=== PATIENT | female | born 1930 | race Caucasian/White ===

== ENCOUNTER → 2016-09-15 | Outpatient (CLI) | payer OTHER, BC ==
[2016-04-09 13:59] VITALS: BP 127/65; PULSE 58
[~2016-09-15] MED LIST: AMLO-114 PO; ASPI325T39 PO; CALC-26 PO; CILO100T PO; ESCI1TAB6 PO; HYDR-3419 PO; LPT/40 PO; METO-217 PO; MULTTAB58 PO; NTRGSL/4 UT; OMEG10007 PO; POTA10CA28 PO; TRIATAB3 PO; ZNTT/150 PO
[2016-09-15 14:04] VITALS: BP_SYST 122; BP_SYST 161; BP_DIAS 69; BP_DIAS 71; PULSE 60; TEMP 36.5; O2SAT 94
--- NOTE | 2016-09-15 16:24 | Radiation Oncology Follow-Up ---
Radiation Oncology Follow-Up Date of Visit Sep 15, 2016. (Lorene Wood PA-C) Reason For Visit 6 month follow-up (Lorene Wood PA-C) Radiation Completion Date SBRT 03/12/16 (Lorene Wood PA-C) Diagnosis (1) Lung cancer Onset Date: 01/09/2016 Histology Subtype: adenocarcinoma Stage: l Permanent Comment: DIAGNOSIS: Lung, LLL, adenocarcinoma, [id number], stage IA Status post completion of radiation therapy 03/06/2016 received 5000 cGy stereotactic body radiation therapy Last Edited By: Lorene Wood on Mar 10:14 (Lorene Wood PA-C) History of Present Illness Ms. Gillis is a 85-year-old female who presented last year which shortness of breath and underwent a CT scan in August 2014 which revealed a pulmonary nodule in the left lung. Initially, she elected for active surveillance. She did have a repeat CT scan on 11/17/2015 which revealed that the lower lobe mass and increase in size and measures 20 mm in the greatest dimension in comparison to 13 mm from the scan on 09/03/2014. She subsequently underwent a PET/CT scan on 12/05/2015 which revealed a spiculated left lower lobe lung nodule measuring up to 18 mm with marked FDG uptake. Also noted was multiple equivocal left hilar lymph nodes and potential osseous metastatic disease involving the sacrum and shoulder joints. The patient did have pulmonary function testing completed on 12/05/2015 which revealed an FVC of 1.98 L, FEV1 of 1.55 L, FEV1/FVC ratio of 78%. The patient was referred to the multidisciplinary, prospective thoracic oncology program at [facility]. In the clinic, the patient was seen by Dr. Porfirio López from thoracic surgery. Dr. López did discuss treatment options with the patient including surgical resection and SBRT if the patient did not have any evidence of distant metastatic disease. Ultimately, he did recommend consideration for SBRT due to the patient's age and performance status. They recommended biopsying both the primary lung mass as well as the potential areas of bony metastatic disease. The patient was seen by interventional radiology, Dr. Hernandez, who did perform a biopsy of the left lower lobe lung mass on 01/09/2016 which revealed lung adenocarcinoma. At the same encounter, Dr. Hernandez reviewed the imaging studies and advised against any biopsies for the shoulder due to high suspicion of muscular activity alone and also recommended against a biopsy of the sacrum due to a high likelihood for Paget's disease of the bone. The patient was then recommended to undergo SBRT for treatment of her primary lung cancer. The patient preferred treatment closer to home and we are now seeing the patient in consultation. She had a CT simulation was found to be a candidate for stereotactic body radiation therapy. This was completed 03/12/2016. She was given in 5 fractions. She received 5000 cGy (Lorene Wood PA-C) Interim History She has been doing well over the past 6 months. She denies any change in her respiratory status. She had some mild discomfort in her back approximately one month post radiation. This resolved in 3 days. She denies any problems with cough or shortness of breath. She has no dysphagia. Appetite is good and weight is stable. She had a recheck CT scan of the chest that [facility] on 09/09/2016. She is here for review of her CAT scan. (Lorene Wood PA-C) Allergies Coded Allergies: Sulfamethoxazole w/Trimethoprim (Verified Allergy, Severe, ANAPHYLAXIS, 02/11/16) Piroxicam (Verified Allergy, Mild, Joint Swelling , 02/11/16) Uncoded Allergies: vicryl sutures (Adverse Reaction, Intermediate, swelling and infection at suture site , 02/11/16) Home Medications Scheduled Amlodipine (Norvasc), 10 MG PO DAILY Aspirin (Aspirin Ec), 325 MG PO DAILY Atorvastatin (Lipitor), 40 MG PO HS Calcium Citrate-Vitamin D (Calcium Citrate +D), 1 TAB PO DAILY Cilostazol (Pletal), 50 MG PO BID Escitalopram Oxalate (Lexapro), 5 MG PO DAILY Fish Oil (Gaines-3), 1 CAP PO DAILY Metoprolol Succinate (Toprol Xl), 50 MG PO DAILY Multiple Vitamin (Multivitamin), 1 TAB PO DAILY Nitroglycerin (Nitrostat), 0.4 MG UT PRN Potassium Chloride (Micro-K Ext Rel), 10 MEQ PO BID Ranitidine (Zantac), 150 MG PO HS Triamterene/Hctz (Triamterene/Hctz 37.5-25MG), 1 TAB PO DAILY Scheduled PRN Hydrocodon/Acetaminophen 5MG/300MG (Vicodin (5MG/300MG)), 1 TAB PO Q6H PRN for Pain Review of Systems Gastrointestinal: Symptoms: Rectal Bleeding GI Comments: Rectal spotting that she relates to hemorrhoids; Oral: Symptoms: No Problems Other Oral Symptoms: Patient got hoarse voice for 2 weeks and "weird" feeling in tongue after tx Respiratory: Symptoms: Dry Cough Respiratory Comments: Dry hacking cough - worse at night Other Respiratory: Dry cough that mostly noted at night; Urinary: Symptoms: WNL Comments: 3 voids/night; Skin: Symptoms: No Problems (Lorene Wood PA-C) Physical Exam Vital Signs Date Time Temp Pulse Resp B/P Pulse Ox O2 Delivery O2 Flow Rate FiO2 09/15/16 14:04 36.5 60 20 161/69 94 122/71 Pain: Patient Pain Scale: 0 - 10 Initial Pain Intensity: 0.0 Additional Comments: gets occasional back pain - takes tylenol PRN Fatigue: None General Appearance: no apparent distress Eyes: normal inspection, EOMI ENT: normal ENT inspection Neck: no adenopathy, thyroid normal Respiratory/Chest: lungs clear, no respiratory distress, no accessory muscle use Cardiovascular: regular rate, rhythm, no gallop, no murmur Extremities: no pedal edema Neurologic/Psychiatric: no motor/sensory deficits, alert, normal mood/affect Skin: warm/dry (Lorene Wood PA-C) Additional Studies Date/Time of Imaging Study Study Completed: 09/09/2016 11:52 AM [employer] PACS Image Narrative EXAM: EXAM: CT THORAX WITHOUT CONTRAST DATE and TIME: 09/09/2016 - 09/09/2016 11:52 am HISTORY: CLINICAL INFORMATION: Lung CA TECHNIQUE: Axial images of the chest without contrast. Multiplanar reformatted images were constructed. COMPARISON CT THORAX WITHOUT CONTRAST dated 06/09/2016; CT THORAX WITHOUT CONTRAST dated 11/13/2015; CT PULMONARY EMBOLUS WITH CONTRAST dated 09/03/2014; PET CT SKULL BASE TO MID THIGH dated 12/04/2015 FINDINGS LINES AND DEVICES: None. LUNGS: Stable 4 mm subpleural lymph node at the left lung apex on image 38, series 3 since the 2 most recent comparison studies which is not seen on the 2014 study. Centrilobular emphysema. Previously seen peripheral left upper lobe ground-glass opacity has resolved. Worsening consolidative process and peribronchial thickening in the left lower lobe extending from the hilum peripherally. A previously measured mass in the left lower lobe now measures 29 x 16 mm where previously it measured 17 x 14 mm. This mass is contiguous with the adjacent lung consolidation. Stable peribronchial thickening in the adjacent lingula. LARGE AIRWAYS: Patent. PLEURA: No effusion or pneumothorax. VESSELS: Normal diameter. Atherosclerotic changes in the aorta and coronary arteries. HEART: Unremarkable. MEDIASTINUM AND JOHANNA: No adenopathy. CHEST WALL/SOFT TISSUES: Stable calcification left breast. No chest wall masses or adenopathy. UPPER ABDOMEN: Status post cholecystectomy. Stable partially seen bilateral renal peripelvic cysts. Adrenal glands are unremarkable. BONES: Stable sclerotic and lytic lesion in the left transverse process of L1. Stable sclerosis in the posterior elements of T3. Degenerative changes throughout the spine and at both glenohumeral joints. No definite new bony lesions are seen. Mild thoracolumbar levoscoliosis. IMPRESSION Increasing nodular density in the left lower lobe with increasing surrounding peribronchial wall thickening and lung consolidation. These findings are suspicious for enlarging primary bronchogenic carcinoma in the left lower lobe with adjacent nonspecific inflammatory/ infectious consolidation versus spread of tumor. Stable metastatic lesions to T1 and T2. Further incidental and chronic findings as described. Authenticated By Authenticating Date Authenticating Time Reading Providers(s) MOE FREEMAN MD 09-11-2016 09:56 MOE FREEMAN MD (Lorene Wood PA-C) Assessment & Plan Plan: The patient was seen and examined by Dr. Fonseca. The CAT scan was pushed into our system and reviewed with Dr. Fonseca and our radiologist. It is felt that the lesion is similar in size. The changes that are being noted are likely posttreatment. It was not felt that the lesion was increasing in size. We will plan for her to have a recheck CT scan of the chest in 4 months. She is going to have that at [facility]. There will be review of prior studies also. (Lorene Wood PA-C) I did review the images personally with our radiology department. I explained to the patient that we cannot exclude progression/persistent cancer however I think it is reasonable to repeat a CT Thorax in 4 months to continue to closely monitor the area since it is not growing and there appears to be changes potentially consistent with radiation therapy. I have encouraged the patient and family to call me if she develops any symptoms and we can move up the date of the her scan or see earlier. She was encouraged to call us with any questions or concerns. I agree with note created by Lorene Wood PA-C. I reviewed the patient's chart and information with her. I have examined and evaluated the patient. I reviewed relevant clinical information and answered the patient's and/or family' s questions. (Veeral. Fonseca MD) Total Time In Follow-Up I spent 15 minutes speaking to the patient and performing examination. I spent 15 minutes reviewing information in completing this note. (Lorene Wood PA-C) I spent 15 minutes examining and counseling the patient. (Veeral. Fonseca MD) Copy To Libia Nails M.D. Problem Qualifiers (1) Lung cancer: Laterality: left Lung location: lower lobe of lung Qualified Codes: C34.32 - Malignant neoplasm of lower lobe, left bronchus or lung
== END | disposition home or self-care (01) ==
LOC: C.ONC 13:38
PROVIDERS: ATTEND Physician Assistant Medical
DX: Z08 Encounter for follow-up examination after completed treatment for malignant neoplasm (principal); Z92.3 Personal history of irradiation; Z85.118 Personal history of other malignant neoplasm of bronchus and lung

== ENCOUNTER → 2017-01-14 | Outpatient (CLI) | payer OTHER, BC ==
--- NOTE | 2017-01-14 14:27 | DIAGNOSTIC IMAGING REPORT ---
(CHEST) THORAX WITHOUT HISTORY:86 yearsFemaleLUNG CA C34.32 COMPARISON: CT chest 09/09/2016, 06/09/2016, 02/19/2016, 02/12/2016, PET/CT 12/04/2015, chest CT 11/13/2015. Reports from these examinations were not available at time of dictation. TECHNIQUE: Multiple axial CT images of the chest were obtained without IV contrast. FINDINGS: No dominant thyroid nodule. There is asymmetric fatty atrophy involving the left subscapularis musculature, nicely demonstrated on image 11 of series 2. No pathologic adenopathy of the chest is definitively seen. Prevascular lymph node is again seen, 1.0 x 0.7 cm which is unchanged. Coronary arterial calcifications are present. There is atherosclerotic plaquing of the aorta. There is no pneumothorax or pleural effusion. Post-therapeutic changes are again seen at the level of the left lung base involving the basal left lower lobe, notably the anteromedial basal segment. Less extensive areas of prickle scarring are seen within the inferior segment lingula. These findings appear stable from 09/09/2016. No evidence of local disease recurrence or distant metastatic disease. Pleural-based areas of nodularity within the left lower lobe measuring up to approximately 4 mm are unchanged dating back to 11/13/2015 chart determinant. The central airways are patent with mild bronchiectasis of the left lower lobe. External renal pelvis on the right is again seen. Prior cholecystectomy. There is moderate pancreatic atrophy. Calcification is seen within the superior left breast. Advanced degenerative changes involve the shoulders bilaterally. Endplate degenerative changes and bone demineralization is noted. IMPRESSION: 1. Stable exam with persistent post-therapeutic scarring of the left lower lobe at the area of previously documented FDG avid pulmonary mass. No evidence of local disease recurrence or distant metastatic disease. 2. No pathologic adenopathy of the chest is identified. 3. Additional incidental findings as above include asymmetric moderate atrophy of the left subscapularis musculature. The above report was generated using voice recognition software. It may contain grammatical, syntax or spelling errors. Electronically signed by: Randolph Wellington 01/14/2017 2:25 PM Dictated Date/Time: 01/14/2017 2:12 PM
== END | disposition home or self-care (01) ==
LOC: C.CTS 13:55
PROVIDERS: ATTEND Physician Assistant Medical
DX: C34.32 Malignant neoplasm of lower lobe, left bronchus or lung (principal)

== ENCOUNTER → 2017-01-26 | Outpatient (CLI) | payer OTHER, BC ==
[2017-01-26 14:07] VITALS: BP 133/69; PULSE 64; TEMP 37.2; O2SAT 94
--- NOTE | 2017-01-26 16:43 | Radiation Oncology Follow-Up ---
Radiation Oncology Follow-Up Date of Visit Jan 26, 2017. (Lorene Wood PA-C) Reason For Visit Four-month follow-up and results of chest CT (Lorene Wood PA-C) Radiation Completion Date SBRT 03/06/16 (Lorene Wood PA-C) Diagnosis (1) Lung cancer Onset Date: 01/09/2016 Histology Subtype: adenocarcinoma Stage: l Permanent Comment: DIAGNOSIS: Lung, LLL, adenocarcinoma, [id number], stage IA Status post completion of radiation therapy 03/06/2016 received 5000 cGy stereotactic body radiation therapy Last Edited By: Lorene Wood on Mar 10:14 (Lorene Wood PA-C) History of Present Illness Ms. Abraham is a 85-year-old female who presented last year which shortness of breath and underwent a CT scan in August 2014 which revealed a pulmonary nodule in the left lung. Initially, she elected for active surveillance. She did have a repeat CT scan on 11/17/2015 which revealed that the lower lobe mass and increase in size and measures 20 mm in the greatest dimension in comparison to 13 mm from the scan on 09/03/2014. She subsequently underwent a PET/CT scan on 12/05/2015 which revealed a spiculated left lower lobe lung nodule measuring up to 18 mm with marked FDG uptake. Also noted was multiple equivocal left hilar lymph nodes and potential osseous metastatic disease involving the sacrum and shoulder joints. The patient did have pulmonary function testing completed on 12/05/2015 which revealed an FVC of 1.98 L, FEV1 of 1.55 L, FEV1/FVC ratio of 78%. The patient was referred to the multidisciplinary, prospective thoracic oncology program at [facility]. In the clinic, the patient was seen by Dr. Porfirio López from thoracic surgery. Dr. López did discuss treatment options with the patient including surgical resection and SBRT if the patient did not have any evidence of distant metastatic disease. Ultimately, he did recommend consideration for SBRT due to the patient's age and performance status. They recommended biopsying both the primary lung mass as well as the potential areas of bony metastatic disease. The patient was seen by interventional radiology, Dr. Hernandez, who did perform a biopsy of the left lower lobe lung mass on 01/09/2016 which revealed lung adenocarcinoma. At the same encounter, Dr. Hernandez reviewed the imaging studies and advised against any biopsies for the shoulder due to high suspicion of muscular activity alone and also recommended against a biopsy of the sacrum due to a high likelihood for Paget's disease of the bone. The patient was then recommended to undergo SBRT for treatment of her primary lung cancer. The patient preferred treatment closer to home and we are now seeing the patient in consultation. She had a CT simulation was found to be a candidate for stereotactic body radiation therapy. This was completed 03/12/2016. She was given in 5 fractions. She received 5000 cGy (Lorene Wood PA-C) Interim History She has noticed hoarseness of the voice and the past few months. She also has a cough which is dry. She denies shortness of breath or wheezing. She denies any chest discomfort. She does have postnasal drainage. She's had that for many years. She feels the raspiness of the voice has continued over the past several months. She denies sore throat. She had a CT of the chest 01/14/2017 and is here today for the results of her scan. (Lorene Wood PA-C) Allergies Coded Allergies: Sulfamethoxazole w/Trimethoprim (Verified Allergy, Severe, ANAPHYLAXIS, 02/11/16) Piroxicam (Verified Allergy, Mild, Joint Swelling , 02/11/16) Uncoded Allergies: vicryl sutures (Adverse Reaction, Intermediate, swelling and infection at suture site , 02/11/16) Home Medications Scheduled Amlodipine (Norvasc), 10 MG PO DAILY Aspirin (Aspirin Ec), 325 MG PO DAILY Atorvastatin (Lipitor), 40 MG PO HS Calcium Citrate-Vitamin D (Calcium Citrate +D), 1 TAB PO DAILY Cilostazol (Pletal), 50 MG PO BID Escitalopram Oxalate (Lexapro), 5 MG PO DAILY Fish Oil (Athelstane-3), 1 CAP PO DAILY Metoprolol Succinate (Toprol Xl), 50 MG PO DAILY Multiple Vitamin (Multivitamin), 1 TAB PO DAILY Nitroglycerin (Nitrostat), 0.4 MG UT PRN Potassium Chloride (Micro-K Ext Rel), 10 MEQ PO BID Ranitidine (Zantac), 150 MG PO HS Triamterene/Hctz (Triamterene/Hctz 37.5-25MG), 1 TAB PO DAILY Scheduled PRN Hydrocodon/Acetaminophen 5MG/300MG (Vicodin (5MG/300MG)), 1 TAB PO Q6H PRN for Pain Review of Systems Gastrointestinal: Symptoms: WNL, Rectal Bleeding GI Comments: Rectal spotting with known hemorrhoids; Oral: Symptoms: No Problems Respiratory: Symptoms: Dry Cough Respiratory Comments: Chronic postnasal drip Sputum Character: Raspy sounding voice since September 2016 Other Respiratory: Persistent dry cough since her diagnosis; Urinary: Symptoms: WNL Skin: Symptoms: No Problems (Lorene Wood PA-C) Physical Exam Vital Signs Date Time Temp Pulse Resp B/P (MAP) Pulse Ox O2 Delivery O2 Flow Rate FiO2 01/26/17 14:07 37.2 64 16 133/69 94 Fatigue: None General Appearance: no apparent distress Eyes: normal inspection, EOMI ENT: hearing grossly normal, TMs normal, pharynx normal, + nasal congestion Neck: supple, no adenopathy, thyroid normal Respiratory/Chest: lungs clear, no respiratory distress, no accessory muscle use Cardiovascular: regular rate, rhythm, no gallop, no murmur Neurologic/Psychiatric: no motor/sensory deficits, alert, normal mood/affect Skin: warm/dry (Lorene Wood PA-C) Laboratory Studies Patient: RENNY ABRAHAM Address1: [address] [place] [address] Rec: [id number] Address2: [facility] ID: [id number] [facility] Zip: [place] [address] Date: 1930 Sex: F Room/Bed: Ref Phy: Libia Nails M.D. SC: LAURA Att Phy: Lorene Wood PA-C Report #: [id number] Kristin Phy: Libia Nails M.D. Test: CXWO Admit Phy: Physician Specialist: IRAM Interpreting Phy: Gentry Wellington D.O. Diagnosis: LUNG CA C34.32 Ordering Phy: Lorene Wood PA-C Service Date: 01/14/17 Admit Date: 01/14/17 MNE: [id number] CONF: DICTATED BY: Gentry Wellington D.OEduar]] CC: Lorene Wood PA-C Kolonich, Kimberly, M.D. [facility]: [~ rep ct add3]] (CHEST) THORAX WITHOUT HISTORY:86 yearsFemaleLUNG CA C34.32 COMPARISON: CT chest 09/09/2016, 06/09/2016, 02/19/2016, 02/12/2016, PET/CT 12/04/2015, chest CT 11/13/2015. Reports from these examinations were not available at time of dictation. TECHNIQUE: Multiple axial CT images of the chest were obtained without IV contrast. FINDINGS: No dominant thyroid nodule. There is asymmetric fatty atrophy involving the left subscapularis musculature, nicely demonstrated on image 11 of series 2. No pathologic adenopathy of the chest is definitively seen. Prevascular lymph node is again seen, 1.0 x 0.7 cm which is unchanged. Coronary arterial calcifications are present. There is atherosclerotic plaquing of the aorta. There is no pneumothorax or pleural effusion. Post-therapeutic changes are again seen at the level of the left lung base involving the basal left lower lobe, notably the anteromedial basal segment. Less extensive areas of prickle scarring are seen within the inferior segment lingula. These findings appear stable from 09/09/2016. No evidence of local disease recurrence or distant metastatic disease. Pleural-based areas of nodularity within the left lower lobe measuring up to approximately 4 mm are unchanged dating back to 11/13/2015 chart determinant. The central airways are patent with mild bronchiectasis of the left lower lobe. External renal pelvis on the right is again seen. Prior cholecystectomy. There is moderate pancreatic atrophy. Calcification is seen within the superior left breast. Advanced degenerative changes involve the shoulders bilaterally. Endplate degenerative changes and bone demineralization is noted. IMPRESSION: 1. Stable exam with persistent post-therapeutic scarring of the left lower lobe at the area of previously documented FDG avid pulmonary mass. No evidence of local disease recurrence or distant metastatic disease. 2. No pathologic adenopathy of the chest is identified. 3. Additional incidental findings as above include asymmetric moderate atrophy of the left subscapularis musculature. The above report was generated using voice recognition software. It may contain grammatical, syntax or spelling errors. Electronically signed by: Randolph Wellington 01/14/2017 2:25 PM Dictated Date/Time: 01/14/2017 2:12 PM (Lorene Wood PA-C) Assessment & Plan Patient was seen today and examined today by Dr. Fonseca. The CT scan was reviewed. Everything is stable. The issues with hoarseness of the voice was discussed. It is felt that she should have an evaluation by ENT. She is here today with family members. An appointment will be discussed with her primary care physician and a request will be made for her recommendation for ENT evaluation. We asked her to return to our office in May. We'll plan a CT recheck prior to that visit. She may call if she has any questions or concerns in the interim. (Lorene Wood PA-C) I agree with note created by Lorene Wood PA-C. I reviewed the patient's chart and information with her. I have examined and evaluated the patient. I reviewed relevant clinical information and answered the patient's and/or family' s questions. (Veeral. Fonseca MD) Total Time In Follow-Up I spent 20 minutes speaking to the patient performing examination. I spent 15 minutes reviewing information and completing this note. (Lorene Wood PA-C) I spent 15 minutes examining and counseling the patient. (Veeral. Fonseca MD) Copy To Libia Nails M.D. Problem Qualifiers (1) Lung cancer: Laterality: left Lung location: lower lobe of lung Qualified Codes: C34.32 - Malignant neoplasm of lower lobe, left bronchus or lung
== END | disposition home or self-care (01) ==
LOC: C.ONC 13:56
PROVIDERS: ATTEND Physician Assistant Medical
DX: Z08 Encounter for follow-up examination after completed treatment for malignant neoplasm (principal); Z92.3 Personal history of irradiation; Z85.118 Personal history of other malignant neoplasm of bronchus and lung

== ENCOUNTER → 2017-06-10 | Outpatient (CLI) | payer OTHER, BC ==
[2017-06-10 13:40] VITALS: BP 138/73; PULSE 68; TEMP 36.5; O2SAT 93
--- NOTE | 2017-06-10 16:39 | Radiation Oncology Follow-Up ---
Radiation Oncology Follow-Up Date of Visit Jun 10, 2017. Radiation Completion Date SBRT 03/12/16 - had 5 treatments Diagnosis (1) Lung cancer Onset Date: 01/09/2016 Permanent Comment: DIAGNOSIS: Lung, LLL, adenocarcinoma, [id number], stage IA Status post completion of radiation therapy 03/06/2016 received 5000 cGy stereotactic body radiation therapy Last Edited By: Lorene Wood on Mar 10:14 History of Present Illness Ms. Gillis is a 87-year-old female who presents with stage I left lung cancer status post SBRT treated in February 2016. She received 5000 cGy in 5 fractions and completed treatment on 03/06/2016. Interim History Today, the patient is doing relatively well overall. She denies any exertional dyspnea. She denies any hemoptysis, fevers, chills, night sweats or weight loss. Her energy and appetite are stable. She has no other complaints. Allergies Coded Allergies: Sulfamethoxazole w/Trimethoprim (Verified Allergy, Severe, ANAPHYLAXIS, 02/11/16) Piroxicam (Verified Allergy, Mild, Joint Swelling , 02/11/16) Uncoded Allergies: vicryl sutures (Adverse Reaction, Intermediate, swelling and infection at suture site , 02/11/16) Home Medications Scheduled Amlodipine (Norvasc), 10 MG PO DAILY Aspirin (Aspirin Ec), 325 MG PO DAILY Atorvastatin (Lipitor), 40 MG PO HS Calcium Citrate-Vitamin D (Calcium Citrate +D), 1 TAB PO DAILY Cilostazol (Pletal), 50 MG PO BID Escitalopram Oxalate (Lexapro), 5 MG PO DAILY Fish Oil ([place]-3), 1 CAP PO DAILY Metoprolol Succinate (Toprol Xl), 50 MG PO DAILY Multiple Vitamin (Multivitamin), 1 TAB PO DAILY Nitroglycerin (Nitrostat), 0.4 MG UT PRN Potassium Chloride (Micro-K Ext Rel), 10 MEQ PO DAILY Ranitidine (Zantac), 150 MG PO HS Triamterene/Hctz (Triamterene/Hctz 37.5-25MG), 1 TAB PO DAILY Scheduled PRN Hydrocodon/Acetaminophen 5MG/300MG (Vicodin (5MG/300MG)), 1 TAB PO Q6H PRN for Pain Review of Systems Gastrointestinal: Symptoms: WNL, Rectal Bleeding GI Comments: Rectal spotting that she relates to hemorrhoids; Oral: Symptoms: No Problems Respiratory: Symptoms: Dry Cough Sputum Character: Doesn't get SOB, just tires easily; Other Respiratory: Dry hacky cough that won't go away; Urinary: Symptoms: WNL Skin: Symptoms: No Problems Physical Exam Vital Signs Date Time Temp Pulse Resp B/P (MAP) Pulse Ox O2 Delivery O2 Flow Rate FiO2 06/10/17 13:40 36.5 68 16 138/73 93 General Appearance: WD/WN, no apparent distress Eyes: normal inspection, PERRL, EOMI ENT: normal ENT inspection, hearing grossly normal, TMs normal, pharynx normal Neck: supple, no adenopathy, thyroid normal, no JVD Respiratory/Chest: chest non-tender, lungs clear, normal breath sounds, no respiratory distress Cardiovascular: regular rate, rhythm, no edema, no gallop, no JVD Abdomen: normal bowel sounds, non tender, soft, no organomegaly Neurologic/Psychiatric: monotype operator II-XII nml as tested, alert, oriented x 3 Pain Management Patient Preferred Pain Scale: 0 - 10 Pain Rating (0-10): 0 Pain Management Plan The patient currently has no pain and requires no pain management plan. Assessment & Plan (Attending) Ms. Gillis is an 87-year-old female with stage I lung cancer status post SBRT completed in February 2016. She was doing well overall and has no complaints. She is not recently had any imaging studies so we will order a CT of the thorax without contrast to be completed closer to her home as soon as possible. We will call her with the results after we have reviewed the scan in comparison to her previous other studies. If the results are negative, we will see the patient back in 6 months for follow-up evaluation with a CT scan completed prior to the follow-up evaluation. She was encouraged to call me if she has any further questions or concerns. Total Time (Attending) In Follow-Up I spent 20 minutes examining and counseling the patient. I spent 15 minutes completing this note. [employer] Copy To Libia Nails M.D.
== END | disposition home or self-care (01) ==
LOC: C.ONC 13:25
PROVIDERS: ATTEND Physician Assistant Medical
DX: C34.32 Malignant neoplasm of lower lobe, left bronchus or lung (principal)